=== PATIENT | female | born 1950 | race Caucasian/White ===

== ENCOUNTER 2017-11-14 06:50 | Day surgery (SDC) | payer MEDICARE ==
[2017-11-13 09:56] VITALS: BMI 25.0
[~2017-11-14 06:50] MED LIST: DEXAMETHASONE SOD PHOSPHATE 10 MG/ML 1 ML VIAL IV ONE; LACTATED RINGERS 1,000 ML IV SCH; LIDOCAINE 1% 20 ML VIAL (10MG/ML) FOR IV START INTRADERMA PRN; ONDANSETRON 4 MG/2 ML VIAL IVP ONE
[2017-11-14] MEDS: CYCLOPENTOLATE 1% OPHTH SOLN 2 ML BTL OP ONE ×3 (07:08→07:30)
[2017-11-14] MEDS: PHENYLEPHRINE 10% OPHTH DROPS 5 ML BTL OP ONE ×3 (07:12→07:33)
[2017-11-14 07:14] VITALS: RESP 16; TEMP 97.6
[2017-11-14] MEDS: FLURBIPROFEN 0.03% OPHTH DROPS 2.5 ML BTL OP ONE ×3 (07:15→07:36)
[2017-11-14 07:31] LABS: Glucose,Whole Blood 143 mg/dL (75-99)
[2017-11-14] MEDS ORDERED: PROPOFOL 10 MG/ML 20 ML VIAL IV ONE (07:55)
[2017-11-14] MEDS ORDERED: TETRACAINE 0.5% OPHTH (PF) DROPS 4 ML BTL LEFT EYE ONE (07:55)
[2017-11-14] MEDS ORDERED: BALANCED SALT IRRIG SOLN COMB2 15 ML IRRIG.SOLN IRRIGATION ONE (08:13)
[2017-11-14] MEDS ORDERED: HYALURONATE SODIUM INTRAOCULAR 1 EACH SYRINGE (10MG/ML) INTRAOCULA ONE ×2 (08:13)
[2017-11-14] MEDS ORDERED: EPINEPHrine (PF) 0.5 ML in BALANCED SALT IRRIG SOLN COMB2 500 ML IRRIGATION ONE (08:15)
--- NOTE | 2017-11-14 08:40 | P.OP ---
Date of Procedure: 11/14/17 Procedure(s) Performed: PREOPERATIVE DIAGNOSIS: Cataract, left eye. POSTOPERATIVE DIAGNOSIS: Cataract, left eye. OPERATION: Phacoemulsification cataract, left eye. DESCRIPTION OF PROCEDURE: The patient was taken to the preoperative holding area. Intravenous Propofol was given so as to bring about adequate sedation. The following mixture was given for local anesthesia: 5 mL of 2% lidocaine, 5 mL of 0.75% Marcaine, and 1 mL of Wydase. Approximately 4 mL was injected in the retrobulbar space of the surgical eye. Additional 1 mL was then directed to the temporal area of the surgical eye. This was performed to allow adequate neurological block of the facial muscles. The patient was revived and then taken into the operative room. The patient was prepped and draped in the usual sterile manner for the operative eye. A lid speculum was put into position. The conjunctiva was resected back from the limbus in the 12 o'clock position. Bleeding was controlled with electrocautery. A #69 blade was then used and a half-thickness scleral incision approximately 1-mm posterior to the limbus was made on bare sclera. This was shelved in the clear cornea using a crescent knife. The steep axis of astigmatism was marked using a pre-inked corneal marking device. Next a 15-degree blade was used to make a stab incision at the 3 o'clock position at the corneolimbal interface. Keratome blade was then used and the superior wound was extended into the anterior chamber. Viscoelastic was injected into the anterior chamber and to maintain its form. An I-stent was introduced and placed into the inferior angle using a hand held gonioprism for guidance. The device was strummed to ensure proper placement. Next, a cystotome was used and a continuous anterior capsulotomy was made without difficulty. Hydrodissection using a blunt cannula and BSS was performed. Phaco probe was then employed and a groove extending from 12 to 6 o' clock in the lens was created. A Edmond wand was used through the stab incision so as to perform a divide and conquer technique. Next an irrigation aspiration probe was utilized and any residual cortex was removed from the eye. Again, viscoelastic was injected into the anterior chamber. An Eliu Toric Restor 2.5 toric posterior chamber lens implant was placed in the cartridge and injected into the anterior chamber without difficulty. The Sinskey hook was utilized to spin the lens into position and this was again performed without any difficulty. The irrigation and aspiration probe was again employed and any residual viscoelastic was removed from the eye. Then BSS was injected into the limbal stab incision and the anterior chamber re-inflated. The conjunctiva was reapproximated using electrocautery. One drop of 0.25% Timoptic was placed over the corneal along with TobraDex ophthalmic ointment. Two sterile patches and a Thomason eye shield were taped into position. The patient was transported to the recovery room in stable condition. Pathology: none sent Condition: stable Disposition: same day
[2017-11-14 08:52] LABS: Glucose,Whole Blood 116 mg/dL (75-99)
[2017-11-14 09:14] VITALS: BP 112/56; PULSE 82
[2017-11-14] MEDS ORDERED: TIMOLOL 0.5% OPHTH DROPS 5 ML BTL OP ONE (23:00)
[2017-11-14] MEDS ORDERED: GENTAMICIN/PREDNISOL AC OPHTH OINT 3.5GM OPHTHALMIC ONE (23:00)
[2017-11-14] MEDS ORDERED: BUPIVACAINE (PF) 0.75% 5 ML, HYALURONIDASE, HUMAN RECOMB 150 UNIT, LIDOCAINE 2% (PF) 10... MISCELLANE ONE ×3 (23:00)
== END 2017-11-14 09:26 | disposition home or self-care (01) ==
LOC: OR 06:50
PROVIDERS: ATTEND Ophthalmology
DX: E11.36 Type 2 diabetes mellitus with diabetic cataract (principal); E13.39 Other specified diabetes mellitus with other diabetic ophthalmic complication; I10 Essential (primary) hypertension; H40.1120 Primary open-angle glaucoma, left eye, stage unspecified; F32.9 Major depressive disorder, single episode, unspecified; E78.5 Hyperlipidemia, unspecified; K21.9 Gastro-esophageal reflux disease without esophagitis; Z88.0 Allergy status to penicillin; Z79.4 Long term (current) use of insulin; Z98.41 Cataract extraction status, right eye; Z96.1 Presence of intraocular lens; Z79.891 Long term (current) use of opiate analgesic; Z79.899 Other long term (current) drug therapy; Z90.710 Acquired absence of both cervix and uterus
CPT/HCPCS: 0191T; 66984

== ENCOUNTER 2024-12-26 16:33 | Inpatient (IN) | payer MEDICARE, OTHER ==
--- NOTE | 2024-12-26 16:59 | ED ---
Recheck HPI - General Chief Complaint: Recheck/Abnormal Lab/Rx Stated Complaint: Abn labs Time Seen by Provider: 12/26/24 16:55 Source: patient, RN notes reviewed, old records reviewed Mode of arrival: ambulatory Limitations: no limitations - History of Present Illness Initial Comments: This is a 74-year-old female to the ER for evaluation today. She presents today for evaluation of abnormal outpatient lab testing elevated potassium. Patient is asymptomatic and has no complaints denies taking exogenous potassium Complaint: abnormal lab (Abnormal potassium) -: unknown Returns Today for: Called Because of Abnormal Lab/Test Symptoms Since Prior Visit: no new symptoms Context: called for abnormal lab result Associated Symptoms: none Treatments Prior to Arrival: other - Related Data Home Medications Medication Instructions Recorded Confirmed Citalopram Hydrobromide [CeleXA] 40 mg PO DAILY 02/19/14 12/26/24 Cyclobenzaprine [Flexeril] 10 mg PO HS 02/19/14 12/26/24 Omeprazole [PriLOSEC] 20 mg PO DAILY 02/19/14 12/26/24 Alendronate Sodium [Fosamax] 70 mg PO FR 12/26/24 12/26/24 Gabapentin 600 mg PO DAILY 12/26/24 12/26/24 Gabapentin 600 mg PO HS PRN 12/26/24 12/26/24 Ibuprofen [Motrin] 600 mg PO Q8HR PRN 12/26/24 12/26/24 Insulin Glargine,Hum.rec.anlog 20 units SQ DAILY 12/26/24 12/26/24 [Lantus Solostar Pen] Insulin Lispro [humaLOG Kwikpen] 1 - 10 unit SQ TID-W/MEALS 12/26/24 12/26/24 L.acidoph,Paracasei, B.lactis 1 cap PO DAILY 12/26/24 12/26/24 [Probiotic] Pravastatin Sodium [Pravachol] 40 mg PO DAILY 12/26/24 12/26/24 lisinopriL [Zestril] 10 mg PO DAILY 12/26/24 12/26/24 Allergies Allergy/AdvReac Type Severity Reaction Status Date / Time Penicillins Allergy Unknown Rash/Hives Verified 12/26/24 18:42 Review of Systems ROS Statement: Those systems with pertinent positive or pertinent negative responses have been documented in the HPI. ROS Other: All systems not noted in ROS Statement are negative. Past Medical History Past Medical History: Diabetes Mellitus, Fibromyalgia, GERD/Reflux, Hyperlipidemia, Osteoarthritis (OA) History of Any Multi-Drug Resistant Organisms: None Reported Past Surgical History: Appendectomy, Hysterectomy, Tonsillectomy Additional Past Surgical History / Comment(s): CATARACT RIGHT EYE (09/12/17) Past Anesthesia/Blood Transfusion Reactions: No Reported Reaction Past Psychological History: Depression Past Alcohol Use History: None Reported Past Drug Use History: None Reported - Past Family History Mother Family Medical History: Cancer General Exam Limitations: no limitations General appearance: alert, in no apparent distress Head exam: Present: atraumatic, normocephalic, normal inspection Eye exam: Present: normal appearance, PERRL, EOMI. Absent: scleral icterus, conjunctival injection, periorbital swelling ENT exam: Present: normal exam, mucous membranes moist Neck exam: Present: normal inspection. Absent: tenderness, meningismus, lymphadenopathy Respiratory exam: Present: normal lung sounds bilaterally. Absent: respiratory distress, wheezes, rales, rhonchi, stridor Cardiovascular Exam: Present: regular rate, normal rhythm, normal heart sounds. Absent: systolic murmur, diastolic murmur, rubs, gallop, clicks GI/Abdominal exam: Present: soft, normal bowel sounds. Absent: distended, tenderness, guarding, rebound, rigid Extremities exam: Present: normal inspection, full ROM, normal capillary refill. Absent: tenderness, pedal edema, joint swelling, calf tenderness Back exam: Present: normal inspection Neurological exam: Present: alert, oriented X3, CN II-XII intact Psychiatric exam: Present: normal affect, normal mood Skin exam: Present: warm, dry, intact, normal color. Absent: rash Course Vital Signs 12/26/24 12/26/24 16:48 18:30 Temperature 98.0 F Pulse Rate 91 71 Respiratory 18 16 Rate Blood Pressure 107/65 123/71 O2 Sat by Pulse 97 99 Oximetry - Reevaluation(s) Reevaluation #1: 12/26/24 19:00 Medical records reviewed Reevaluation #2: 12/26/24 19:00 Patient is asymptomatic Reevaluation #3: 12/26/24 19:00 Patient informed of results questions answered Reevaluation #4: Was pt. sent in by a medical professional or institution (MARY Carlisle, REHABILITATION SPECIALIST, urgent care, hospital, or prison...) When possible be specific @ -no Did you speak to anyone other than the patient for history (EMS, parent, family, police, friend...)? What history was obtained from this source @ -no Did you review nursing and triage notes (agree or disagree)? Why? @ -agree Are old charts reviewed (outside hosp., previous admission, EMS record, old EKG, old radiological studies, urgent care reports/EKG's, prison records)? Report findings @ -yes Differential Diagnosis (chest pain, altered mental status, abdominal pain women, abdominal pain men, vaginal bleeding, weakness, fever, dyspnea, syncope, hea dache, dizziness, GI bleed, back pain, seizure, CVA, palpatations, mental health, musculoskeletal)? @ -prior EKG interpreted by me (3pts min.). @ -yes X-rays interpreted by me (1pt min.). @ -yes negative for acute disease CT interpreted by me (1pt min.). @ -no U/S interpreted by me (1pt. min.). @ -no What testing was considered but not performed or refused? (CT, X-rays, U/S, labs)? Why? @ -none What meds were considered but not given or refused? Why? @ -none Did you discuss the management of the patient with other professionals (professionals i.e. MARY Carlisle, REHABILITATION SPECIALIST, lab, RT, psych nurse, social service liaison, instructional support assistant, teacher, maritime officer, case hardener)? Give summary @ -no Was smoking cessation discussed for >3mins.? @ -no Was critical care preformed (if so, how long)? @ -no Were there social determinants of health that impacted care today? How? (Homelessness, low income, unemployed, alcoholism, drug addiction, transportation, low edu. Level, literacy, decrease access to med. care, retirement, rehab)? @ -none Was there de-escalation of care discussed even if they declined (Discuss DNR or withdrawal of care, Hospice)? DNR status @ -no What co-morbidities impacted this encounter? (DM, HTN, Smoking, COPD, CAD, Cancer, CVA, ARF, Chemo, Hep., AIDS, mental health diagnosis, sleep apnea, mo rbid obesity)? @ -none Was patient admitted / discharged? Hospital course, mention meds given and r oute, prescriptions, significant lab abnormalities, going to OR and other pertinent info. @ - Undiagnosed new problem with uncertain prognosis? @ -no Drug Therapy requiring intensive monitoring for toxicity (Heparin, Nitro, Insulin, Cardizem)? @ -no Were any procedures done? @ -no Diagnosis/symptom? @ - Acute, or Chronic, or Acute on Chronic? @ -Acute Uncomplicated (without systemic symptoms) or Complicated (systemic symptoms)? @ -Complicated Side effects of treatment? @ -no Exacerbation, Progression, or Severe Exacerbation? @ -exacerbation Poses a threat to life or bodily function? How? (Chest pain, USA, DE, pneumonia, PE, COPD, DKA, ARF, appy, cholecystitis, CVA, Diverticulitis, Homicidal, Suicidal, threat to staff... and all critical care pts) @ -yes - Consultations Consultation #1: Spoke with sound who agrees to admit this patient Medical Decision Making - Medical Decision Making 74 female will admit for hyperkalemia no EKG changes - Lab Data Result diagrams: 12/26/24 17:10 12/26/24 17:10 Lab Results 12/26/24 12/26/24 Range/Units 17:10 17:10 WBC 7.5 (3.8-10.6) k/uL RBC 3.82 (3.80-5.40) m/uL Hgb 11.6 (11.4-16.0) gm/dL Hct 35.6 (34.0-46.0) % MCV 93.2 (80.0-100.0) fL MCH 30.3 (25.0-35.0) pg MCHC 32.5 (31.0-37.0) g/dL RDW 12.9 (11.5-15.5) % Plt Count 249 (150-450) k/uL MPV 7.2 Neutrophils % 68 % Lymphocytes % 16 % Monocytes % 7 % Eosinophils % 6 % Basophils % 0 % Neutrophils # 5.1 (1.3-7.7) k/uL Lymphocytes # 1.2 (1.0-4.8) k/uL Monocytes # 0.5 (0-1.0) k/uL Eosinophils # 0.4 (0-0.7) k/uL Basophils # 0.0 (0-0.2) k/uL Sodium 136 L (137-145) mmol/L Potassium 6.2 H* (3.5-5.1) mmol/L Chloride 108 H (98-107) mmol/L Carbon Dioxide 18 L (22-30) mmol/L Anion Gap 10 mmol/L BUN 35 H (7-17) mg/dL Creatinine 1.36 H (0.52-1.04) mg/dL Est GFR (CKD-EPI)AfAm 44 (>60 ml/min/1.73 sqM) Est GFR (CKD-EPI)NonAf 38 (>60 ml/min/1.73 sqM) Glucose 142 H (74-99) mg/dL Calcium 9.6 (8.4-10.2) mg/dL Phosphorus 6.7 H (2.5-4.5) mg/dL Magnesium 1.9 (1.6-2.3) mg/dL Total Bilirubin 0.4 (0.2-1.3) mg/dL AST 27 (14-36) U/L ALT 16 (4-34) U/L Alkaline Phosphatase 123 (38-126) U/L Total Protein 6.6 (6.3-8.2) g/dL Albumin 4.0 (3.5-5.0) g/dL - EKG Data -: EKG Interpreted by Me (EKG is sinus 82 HI 145 QRS 85 QTc 396) Critical Care Time Critical Care Time: Yes Total Critical Care Time: 31 Disposition Clinical Impression: Hyperkalemia Disposition: ADMITTED IP TO THIS HOSP Condition: Fair Is patient prescribed a controlled substance at d/c from ED?: No Time of Disposition: 18:00
[2024-12-26] MEDS: SODIUM CHLORIDE 0.9% 1,000 ML IV ONE (17:14)
[2024-12-26 17:17] LABS: Basophils % (A) 0 %; Eosinophils # (A) 0.4 k/uL (0-0.7); Eosinophils % (A) 6 %; HCT 35.6 % (34.0-46.0); HGB 11.6 gm/dL (11.4-16.0); Lymphocytes # (A) 1.2 k/uL (1.0-4.8); Lymphocytes % (A) 16 %; MCH 30.3 pg (25.0-35.0); MCHC 32.5 g/dL (31.0-37.0); MCV 93.2 fL (80.0-100.0); Mean Platelet Volume 7.2; Monocytes # (A) 0.5 k/uL (0-1.0); Monocytes % (A) 7 %; Neutrophils # (A) 5.1 k/uL (1.3-7.7); Neutrophils % (A) 68 %; Platelet Count 249 k/uL (150-450); RBC 3.82 m/uL (3.80-5.40); RDW 12.9 % (11.5-15.5); WBC 7.5 k/uL (3.8-10.6)
[2024-12-26 17:42] LABS: ALT 16 U/L (4-34); AST 27 U/L (14-36); African American GFR (CKD) 44 (>60 ml/min/1.73 sqM); Alkaline Phosphatase 123 U/L (38-126); Anion Gap 10 mmol/L; Blood Urea Nitrogen 35 mg/dL (7-17); Calcium 9.6 mg/dL (8.4-10.2); Carbon Dioxide 18 mmol/L (22-30); Chloride 108 mmol/L (98-107); Glucose 142 mg/dL (74-99); Magnesium 1.9 mg/dL (1.6-2.3); Non-African American GFR(CKD) 38 (>60 ml/min/1.73 sqM); Phosphorus 6.7 mg/dL (2.5-4.5); Sodium 136 mmol/L (137-145); Total Bilirubin 0.4 mg/dL (0.2-1.3); Total Protein 6.6 g/dL (6.3-8.2)
[2024-12-26 17:46] LABS: Potassium 6.2 mmol/L (3.5-5.1)
[2024-12-26] MEDS ORDERED: MORPHINE SULFATE 4 MG/ML SYRINGE IV PRN (17:58)
[2024-12-26] MEDS ORDERED: NALOXONE 0.4 MG/ML 1 ML VIAL IV PRN (17:58)
[2024-12-26] MEDS ORDERED: ONDANSETRON 4 MG/2 ML VIAL IVP PRN (17:58)
[2024-12-26] MEDS: DEXTROSE 50% SYRINGE 50 ML IVP STA (18:43)
[2024-12-26] MEDS: INSULIN REGULAR 100 UNIT/ML VIAL (IV) IV ONE (18:47)
[2024-12-26] MEDS: SODIUM ZIRCONIUM CYCLOSILICATE 10 GM PACKET PO ONE (18:49)
[2024-12-26] MEDS: FUROSEMIDE 10 MG/ML 4 ML VIAL IV STA (18:51)
[2024-12-26 20:09] LABS: Glucose,Whole Blood 55 mg/dL (70-110)
[2024-12-26 20:52] LABS: Glucose,Whole Blood 188 mg/dL (70-110)
[2024-12-26] MEDS: SODIUM CHLORIDE 0.9% 1,000 ML IV SCH (21:02)
[2024-12-26] MEDS ORDERED: GABAPENTIN 300 MG CAP PO PRN (21:06)
[2024-12-27 00:09] LABS: Glucose,Whole Blood 201 mg/dL (70-110)
--- NOTE | 2024-12-27 01:23 | P.HPIM ---
History of Present Illness H&P Date: 12/26/24 Chief Complaint: Hyperkalemia Patient is a 74 female with insulin-dependent diabetes mellitus, hyperlipidemia presenting with abnormal lab value of potassium level of 6.2. Patient states she had lab work recently done by her PCP. Received a call by her PCP to go to the emergency department due to high level of potassium of 7. Patient currently denies any fever, chest pain, heart palpitations, shortness of breath, abdominal pain, urinary symptoms. Denies any excessive exogenous potassium intake. EKG independent interpreted showing sinus rhythm, vent rate 82 bpm, QTc 396 ms T98.0 F, NV 91, RR 18 BP 107/65, O2 sat 97% on room air Review of systems: Pertinent positives and negatives as discussed in HPI, a complete review of systems was performed and all other systems are negative. Physical examination: Vital signs reviewed General: non toxic, no distress, appears at stated age, normal weight Derm: no unusual rashes/lesions, warm Head: atraumatic, normocephalic, symmetric Eyes: anicteric sclera, pupils equal round reactive to light ENT: Nose and ears atraumatic Mouth: no lip lesion, mucus membranes moist Cardiovascular: S1S2 reg, no murmur, positive dorsalis pedis pulse bilateral, no edema Lungs: CTA bilateral, no rhonchi, no rales, no accessory muscle use Abdominal: soft, nontender to palpation, no guarding Ext: muscle strength 5 out of 5 in all 4 extremities grossly, no gross muscle atrophy Neuro: CN II-XI grossly intact, no gross focal neuro deficits Psych: Alert, oriented to person, place, and time Assessment/Plan: ED documentation reviewed and case discussed with ED provider. Discussed with patient. The patient is admitted with an anticipated less than 2 midnight stay for evaluation of hyperkalemia. #. Hyperkalemia #. Non-anion gap metabolic acidosis #. DIANE on CKD stage IIIa (unknown baseline) #. Elevated phosphorus K 6.2 Phosphorus 6.7 Status post regular insulin 10 units IV once, dextrose 50 mL IVPB, Lasix 40 mg IV once, and Lokelma 10 g PO Hold lisinopril Renal diet NS at 130 cc an hour Cardiac telemetry Follow-up BMP in the morning #. Insulin-dependent diabetes mellitus Continue with Lantus 20 units SQ daily Humalog 5 unit SQ AC 3 times daily Insulin SQ sliding scale Accu-Cheks ACHS Monitor for hypoglycemia Chronic: #. Hyperlipidemia: Continue atorvastatin #. Depression: Continue citalopram 40 mg p.o. daily #. Neuropathy: Continue gabapentin 600 Millin p.o. daily, 600 mg p.o. at bedtime as needed #. GERD: Protonix 40 mg p.o. daily DVT prophylaxis: Lovenox 40 SQ daily CODE STATUS: Full code Anticipated discharge place: Pending clinical course Jessica Willis MD PGY-1 IM Dictation was produced using [employer] dictation software. please excuse any grammatical, word or spelling errors. I have seen and evaluated the patient today. I Discussed the case with the resident and agree with the resident's findings I edited the assessment and plan as necessary as documented in the resident's note. Past Medical History Past Medical History: Diabetes Mellitus, Fibromyalgia, GERD/Reflux, Hyperlipidemia, Osteoarthritis (OA) History of Any Multi-Drug Resistant Organisms: None Reported Past Surgical History: Appendectomy, Hysterectomy, Tonsillectomy Additional Past Surgical History / Comment(s): CATARACT RIGHT EYE (09/12/17) Past Anesthesia/Blood Transfusion Reactions: No Reported Reaction Past Psychological History: Depression Past Alcohol Use History: None Reported Past Drug Use History: None Reported - Past Family History Mother Family Medical History: Cancer Medications and Allergies Home Medications Medication Instructions Recorded Confirmed Type Citalopram Hydrobromide [CeleXA] 40 mg PO DAILY 02/19/14 12/26/24 History Cyclobenzaprine [Flexeril] 10 mg PO HS 02/19/14 12/26/24 History Omeprazole [PriLOSEC] 20 mg PO DAILY 02/19/14 12/26/24 History Alendronate Sodium [Fosamax] 70 mg PO FR 12/26/24 12/26/24 History Gabapentin 600 mg PO DAILY 12/26/24 12/26/24 History Gabapentin 600 mg PO HS PRN 12/26/24 12/26/24 History Ibuprofen [Motrin] 600 mg PO Q8HR PRN 12/26/24 12/26/24 History Insulin Glargine,Hum.rec.anlog 20 units SQ DAILY 12/26/24 12/26/24 History [Lantus Solostar Pen] Insulin Lispro [humaLOG Kwikpen] 1 - 10 unit SQ TID-W/MEALS 12/26/24 12/26/24 History L.acidoph,Paracasei, B.lactis 1 cap PO DAILY 12/26/24 12/26/24 History [Probiotic] Pravastatin Sodium [Pravachol] 40 mg PO DAILY 12/26/24 12/26/24 History lisinopriL [Zestril] 10 mg PO DAILY 12/26/24 12/26/24 History Allergies Allergy/AdvReac Type Severity Reaction Status Date / Time Penicillins Allergy Unknown Rash/Hives Verified 12/26/24 18:42 Physical Exam Vitals: Vital Signs Temp Pulse Resp BP Pulse Ox 12/26/24 18:30 71 16 123/71 99 12/26/24 16:48 98.0 F 91 18 107/65 97 Intake and Output 12/26/24 12/26/24 12/26/24 06:59 14:59 22:59 Other: Weight 68.039 kg Results CBC & Chem 7: 12/26/24 17:10 12/26/24 17:10 Labs: Abnormal Lab Results - Last 24 Hours (Table) 12/26/24 Range/Units 17:10 Sodium 136 L (137-145) mmol/L Potassium 6.2 H* (3.5-5.1) mmol/L Chloride 108 H (98-107) mmol/L Carbon Dioxide 18 L (22-30) mmol/L BUN 35 H (7-17) mg/dL Creatinine 1.36 H (0.52-1.04) mg/dL Glucose 142 H (74-99) mg/dL Phosphorus 6.7 H (2.5-4.5) mg/dL
[2024-12-27 03:13] LABS: Basophils % (A) 1 %; Eosinophils # (A) 0.3 k/uL (0-0.7); Eosinophils % (A) 5 %; HCT 33.5 % (34.0-46.0); HGB 10.8 gm/dL (11.4-16.0); Hypochromasia Slight; Lymphocytes % (A) 17 %; MCH 30.4 pg (25.0-35.0); MCHC 32.1 g/dL (31.0-37.0); MCV 94.5 fL (80.0-100.0); Mean Platelet Volume 7.1; Monocytes # (A) 0.4 k/uL (0-1.0); Monocytes % (A) 7 %; Neutrophils # (A) 3.8 k/uL (1.3-7.7); Neutrophils % (A) 67 %; Platelet Count 224 k/uL (150-450); RBC 3.55 m/uL (3.80-5.40); RDW 12.8 % (11.5-15.5); WBC 5.7 k/uL (3.8-10.6)
[2024-12-27 03:22] LABS: ALT 16 U/L (4-34); AST 29 U/L (14-36); African American GFR (CKD) 43 (>60 ml/min/1.73 sqM); Albumin 3.7 g/dL (3.5-5.0); Alkaline Phosphatase 99 U/L (38-126); Anion Gap 8 mmol/L; Blood Urea Nitrogen 33 mg/dL (7-17); Carbon Dioxide 21 mmol/L (22-30); Chloride 108 mmol/L (98-107); Glucose 119 mg/dL (74-99); Magnesium 1.8 mg/dL (1.6-2.3); Non-African American GFR(CKD) 37 (>60 ml/min/1.73 sqM); Phosphorus 6.4 mg/dL (2.5-4.5); Sodium 137 mmol/L (137-145); Total Bilirubin 0.3 mg/dL (0.2-1.3); Total Protein 6.1 g/dL (6.3-8.2)
[2024-12-27 03:24] LABS: African American GFR (CKD) 43 (>60 ml/min/1.73 sqM); Anion Gap 10 mmol/L; Blood Urea Nitrogen 33 mg/dL (7-17); Calcium 9.3 mg/dL (8.4-10.2); Carbon Dioxide 21 mmol/L (22-30); Chloride 105 mmol/L (98-107); Creatine Kinase 38 U/L (30-135); Glucose 113 mg/dL (74-99); Non-African American GFR(CKD) 37 (>60 ml/min/1.73 sqM); Sodium 136 mmol/L (137-145)
[2024-12-27 03:30] LABS: Potassium 6.1 mmol/L (3.5-5.1)
--- NOTE | 2024-12-27 10:59 | US ---
EXAMINATION TYPE: US kidneys/renal and bladder DATE OF EXAM: 12/27/2024 COMPARISON: NONE CLINICAL INDICATION: Female, 74 years old with history of DIANE on CKD; DIANE/CKD TECHNIQUE: Grayscale imaging of the bilateral kidneys and urinary bladder: FINDINGS: EXAM MEASUREMENTS: Right Kidney: 10.1x5.1x4.5 cm Left Kidney: 8.4x4.2x4.1 cm Right Kidney: No hydronephrosis or masses seen Left Kidney: atrophic appearance compared to right side, cortical thinning Bladder: wnl There is no evidence for hydronephrosis at this point in time. No nephrolithiasis is seen. No naila s are identified. The urinary bladder is anechoic. exam limited by shadowing ribs, bowel gas, body habitus IMPRESSION: 1. No obstructive uropathy. 2. Atrophic left kidney with cortical thinning correlate for history of injury. [facility], , 12/27/2024 10:56 AM
[2024-12-27 11:05] LABS: Glucose,Whole Blood 204 mg/dL (70-110)
[2024-12-27] MEDS: INSULIN LISPRO (HumaLOG) 100 UNIT/ML 10 mL VL SQ SCH ×2 (11:23)
[2024-12-27 11:24] LABS: Appearance,Urine Clear (Clear); Bilirubin,Urine Negative (Negative); Blood,Urine Negative (Negative); Color,Urine Colorless; Glucose,Urine (UA) 4+ (Negative); Ketones,Urine Negative (Negative); Leukocyte Esterase,Urine Trace (Negative); Nitrite,Urine Negative (Negative); PH, Urine 6.5 (5.0-8.0); Protein,Urine Negative (Negative); RBC,Urine <1 /hpf (0-5); Specific Gravity,Urine 1.011 (1.001-1.035); Squamous Epithelial Cell,Urine <1 /hpf (0-4); Urobilinogen,Urine <2.0 mg/dL (<2.0); WBC,Urine 3 /hpf (0-5)
[2024-12-27] MEDS: INSULIN GLARGINE (LANTUS) 100 UNIT/ML SYR SQ SCH (11:25)
[2024-12-27] MEDS: CITALOPRAM HYDROBROMIDE 20 MG TAB PO SCH (11:27)
[2024-12-27] MEDS: PANTOPRAZOLE 40 MG TABLET PO SCH (11:28)
[2024-12-27] MEDS: PRAVASTATIN SODIUM 40 MG TAB PO SCH (11:28)
[2024-12-27] MEDS: SODIUM ZIRCONIUM CYCLOSILICATE 10 GM PACKET PO ONE (11:29)
[2024-12-27] MEDS: ENOXAPARIN 40 MG/0.4 ML SYRINGE SQ SCH (11:30)
[2024-12-27] MEDS: GABAPENTIN 300 MG CAP PO SCH (11:36)
--- NOTE | 2024-12-27 12:34 | P.PN ---
Subjective Progress Note Date: 12/27/24 Patient is a 74 female with insulin-dependent diabetes mellitus, hyperlipidemia presenting with abnormal lab value of potassium level of 6.2. Patient states she had lab work recently done by her PCP. Received a call by her PCP to go to the emergency department due to high level of potassium of 7. Patient currently denies any fever, chest pain, heart palpitations, shortness of breath, abdominal pain, urinary symptoms. Denies any excessive exogenous potassium intake. EKG independent interpreted showing sinus rhythm, vent rate 82 bpm, QTc 396 ms T98.0 F, CO 91, RR 18 BP 107/65, O2 sat 97% on room air 12/27/2024 patient seen and examined at bedside. No acute events overnight. Labs: WBC 5.7, hemoglobin 10.8, platelet count 2 24,000, sodium 136, potassium 6, bicarb 21, BUN 33, creatinine 4.38, glucose 113, calcium 9.3, phosphorus 6.4, magnesium 1.8. Creatinine kinase 38. Liver enzymes normal. Review of systems: Pertinent positives and negatives as discussed in HPI, a complete review of sy stems was performed and all other systems are negative. Physical examination: Vital signs reviewed General: non toxic, no distress, appears at stated age, normal weight Derm: no unusual rashes/lesions, warm Head: atraumatic, normocephalic, symmetric Eyes: anicteric sclera, pupils equal round reactive to light ENT: Nose and ears atraumatic Mouth: no lip lesion, mucus membranes moist Cardiovascular: S1S2 reg, no murmur, positive dorsalis pedis pulse bilateral, no edema Lungs: CTA bilateral, no rhonchi, no rales, no accessory muscle use Abdominal: soft, nontender to palpation, no guarding Ext: muscle strength 5 out of 5 in all 4 extremities grossly, no gross muscle atrophy Neuro: CN II-XI grossly intact, no gross focal neuro deficits Psych: Alert, oriented to person, place, and time Assessment/Plan: 74-year-old female with diabetes, hyperlipidemia presenting for further management of hyperkalemia. ED documentation reviewed and case discussed with ED provider. Discussed with patient. The patient is admitted with an anticipated less than 2 midnight stay for evaluation of hyperkalemia. #. Hyperkalemia #. Non-anion gap metabolic acidosis #. DIANE on CKD stage IIIa (unknown baseline) #. Elevated phosphorus K 6 Given regular insulin 10 units IV x1, dextrose 50 mL IVPB x1, Lasix 40 mg IV x1, and Lokelma 10 g PO x1 in the ED Hold lisinopril Lokelma 10 g once p.o. Recheck potassium in the afternoon Renal diet NS at 100 cc an hour Cardiac telemetry Follow-up BMP in the morning #. Insulin-dependent diabetes mellitus Continue with Lantus 20 units SQ daily Humalog 5 unit SQ AC 3 times daily Insulin SQ sliding scale Accu-Cheks ACHS Monitor for hypoglycemia Chronic: #. Hyperlipidemia: Continue atorvastatin #. Depression: Continue citalopram 40 mg p.o. daily #. Neuropathy: Continue gabapentin 600 Millin p.o. daily, 600 mg p.o. at bedtime as needed #. GERD: Protonix 40 mg p.o. daily DVT prophylaxis: Lovenox 40 SQ daily CODE STATUS: Full code Anticipated discharge place: Pending clinical course I have seen and evaluated the patient today. Discussed with the resident and agree with the residents finding and plan as documented in the resident's note. Changes highlighted in blue font. Objective - Vital Signs Vital signs: Vital Signs Temp 98.0 F 12/26/24 16:48 Pulse 82 12/27/24 04:47 Resp 16 12/27/24 04:47 BP 126/62 12/27/24 04:47 Pulse Ox 99 12/27/24 04:47 FiO2 Intake & Output 12/26/24 12/26/24 12/27/24 06:59 18:59 06:59 Weight 68.039 kg - Labs CBC & Chem 7: 12/27/24 02:37 12/27/24 12:03 Labs: Abnormal Lab Results - Last 24 Hours (Table) 12/26/24 12/26/24 12/26/24 Range/Units 17:10 20:08 20:51 RBC (3.80-5.40) m/uL Hgb (11.4-16.0) gm/dL Hct (34.0-46.0) % Sodium 136 L (137-145) mmol/L Potassium 6.2 H* (3.5-5.1) mmol/L Chloride 108 H (98-107) mmol/L Carbon Dioxide 18 L (22-30) mmol/L BUN 35 H (7-17) mg/dL Creatinine 1.36 H (0.52-1.04) mg/dL Glucose 142 H (74-99) mg/dL POC Glucose (mg/dL) 55 L 188 H (70-110) mg/dL Phosphorus 6.7 H (2.5-4.5) mg/dL Total Protein (6.3-8.2) g/dL 12/27/24 12/27/24 12/27/24 Range/Units 00:06 02:37 02:37 RBC 3.55 L (3.80-5.40) m/uL Hgb 10.8 L (11.4-16.0) gm/dL Hct 33.5 L (34.0-46.0) % Sodium (137-145) mmol/L Potassium 6.1 H* (3.5-5.1) mmol/L Chloride 108 H (98-107) mmol/L Carbon Dioxide 21 L (22-30) mmol/L BUN 33 H (7-17) mg/dL Creatinine 1.38 H (0.52-1.04) mg/dL Glucose 119 H (74-99) mg/dL POC Glucose (mg/dL) 201 H (70-110) mg/dL Phosphorus 6.4 H (2.5-4.5) mg/dL Total Protein 6.1 L (6.3-8.2) g/dL 12/27/24 Range/Units 02:37 RBC (3.80-5.40) m/uL Hgb (11.4-16.0) gm/dL Hct (34.0-46.0) % Sodium 136 L (137-145) mmol/L Potassium 6.0 H (3.5-5.1) mmol/L Chloride (98-107) mmol/L Carbon Dioxide 21 L (22-30) mmol/L BUN 33 H (7-17) mg/dL Creatinine 1.38 H (0.52-1.04) mg/dL Glucose 113 H (74-99) mg/dL POC Glucose (mg/dL) (70-110) mg/dL Phosphorus (2.5-4.5) mg/dL Total Protein (6.3-8.2) g/dL
[2024-12-27 17:34] LABS: Glucose,Whole Blood 69 mg/dL (70-110)
[2024-12-27 21:04] LABS: Glucose,Whole Blood 151 mg/dL (70-110)
[2024-12-27] MEDS ORDERED: NON FORMULARY DRUG (Alendronate Sodium [Fosamax] 70 MG Tablet) PO SCH (21:06)
[2024-12-27] MEDS: CYCLOBENZAPRINE 10 MG TAB PO SCH (21:11)
[2024-12-27] MEDS ORDERED: ACETAMINOPHEN TAB 325 MG TAB PO PRN (23:38)
[2024-12-27] MEDS ORDERED: BENZOCAINE/MENTHOL LOZENG 1 EACH LOZENGE MUCOUS MEM PRN (23:38)
[2024-12-27] MEDS ORDERED: guaiFENesin 600 MG TABLET.ER PO PRN (23:40)
[2024-12-28 01:50] LABS: Influenza A Not Detected (Not Detectd); Influenza B Not Detected (Not Detectd); RSV Not Detected (Not Detectd)
[2024-12-28 06:41] LABS: African American GFR (CKD) 47 (>60 ml/min/1.73 sqM); Anion Gap 7 mmol/L; Blood Urea Nitrogen 27 mg/dL (7-17); Carbon Dioxide 24 mmol/L (22-30); Chloride 108 mmol/L (98-107); Glucose 92 mg/dL (74-99); Non-African American GFR(CKD) 40 (>60 ml/min/1.73 sqM); Potassium 5.5 mmol/L (3.5-5.1); Sodium 139 mmol/L (137-145)
[2024-12-28 07:42] LABS: Glucose,Whole Blood 96 mg/dL (70-110)
[2024-12-28] MEDS: DEXTROSE 50% SYRINGE 50 ML IVP STA (09:15)
[2024-12-28] MEDS: INSULIN REGULAR 100 UNIT/ML VIAL (IV) IV ONE (09:16)
[2024-12-28] MEDS: MAGNESIUM SULFATE-D5W PMX 1 GM in DEXTROSE/WATER 1 100ML.BAG IVPB SCH (09:26)
[2024-12-28] MEDS: SODIUM ZIRCONIUM CYCLOSILICATE 10 GM PACKET PO ONE (10:13)
--- NOTE | 2024-12-28 11:04 | P.NPCON ---
History of Present Illness - Reason for Consult hyperkalemia - History of Present Illness Patient is a 74-year-old female with history of type 2 diabetes, fibromyalgia who is admitted to the hospital as she was told by her primary care physician that her potassium was elevated and she needs to go to the ER. Serum potassium was 6.2 and has improved to 5.5 today. Serum creatinine was 1.36 and is 1.29 today. Lisinopril and Motrin noted on home med list Blood sugar was not significantly elevated Blood pressure was not low Patient states that she has had difficulty in voiding for many years now Past Medical History Past Medical History: Diabetes Mellitus, Fibromyalgia, GERD/Reflux, Hyperlipidemia, Osteoarthritis (OA) History of Any Multi-Drug Resistant Organisms: None Reported Past Surgical History: Appendectomy, Hysterectomy, Tonsillectomy Additional Past Surgical History / Comment(s): CATARACT RIGHT EYE (09/12/17) 3 back surgeries Past Anesthesia/Blood Transfusion Reactions: No Reported Reaction Past Psychological History: Depression Smoking Status: Never smoker Past Alcohol Use History: None Reported Past Drug Use History: None Reported - Past Family History Mother Family Medical History: Cancer Medications and Allergies Home Medications Medication Instructions Recorded Confirmed Type Citalopram Hydrobromide [CeleXA] 40 mg PO DAILY 02/19/14 12/26/24 History Cyclobenzaprine [Flexeril] 10 mg PO HS 02/19/14 12/26/24 History Omeprazole [PriLOSEC] 20 mg PO DAILY 02/19/14 12/26/24 History Alendronate Sodium [Fosamax] 70 mg PO FR 12/26/24 12/26/24 History Gabapentin 600 mg PO DAILY 12/26/24 12/26/24 History Gabapentin 600 mg PO HS PRN 12/26/24 12/26/24 History Ibuprofen [Motrin] 600 mg PO Q8HR PRN 12/26/24 12/26/24 History Insulin Glargine,Hum.rec.anlog 20 units SQ DAILY 12/26/24 12/26/24 History [Lantus Solostar Pen] Insulin Lispro [humaLOG Kwikpen] 1 - 10 unit SQ TID-W/MEALS 12/26/24 12/26/24 History L.acidoph,Paracasei, B.lactis 1 cap PO DAILY 12/26/24 12/26/24 History [Probiotic] Pravastatin Sodium [Pravachol] 40 mg PO DAILY 12/26/24 12/26/24 History lisinopriL [Zestril] 10 mg PO DAILY 12/26/24 12/26/24 History Allergies Allergy/AdvReac Type Severity Reaction Status Date / Time Penicillins Allergy Unknown Rash/Hives Verified 12/26/24 18:42 Physical Exam Vitals: Vital Signs Temp Pulse Pulse Resp BP BP Pulse Ox 12/28/24 07:42 97.9 F 86 14 121/76 95 12/28/24 04:00 98 F 80 16 119/74 99 12/27/24 23:35 97.7 F 89 16 152/78 96 12/27/24 22:28 84 18 130/65 97 12/27/24 19:36 98 18 126/67 98 12/27/24 15:39 94 18 141/73 96 12/27/24 13:29 91 18 122/61 96 12/27/24 11:00 95 18 Intake and Output 12/27/24 12/28/24 12/28/24 22:59 06:59 14:59 Other: Voiding Method Toilet # Voids 2 Weight 68.039 kg 69.5 kg Patient is awake, comfortable, no acute distress Examination of the heart S1 and S2 Examination of the lungs bilateral breath sounds are heard Abdomen is soft nontender Examination of lower extremities shows no evidence 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 Hyperkalemia associated with use of RUMA inhibitors, NSAIDs noted on home med list with possible acute kidney injury. No previous labs available for comparison. Need to rule out urine retention as well. 2. Acute kidney injury versus chronic kidney disease. No previous labs available for comparison. Ultrasound shows asymmetric kidneys with left kidney 8.4 cm right kidney 10.1 cm. No obvious hydronephrosis noted. 3. History of hypertension maintained on RUMA inhibitors Plan: Continue to hold RUMA inhibitors Check bladder scan Continue with IV fluids Maintain low potassium diet Patient is advised to avoid NSAIDs Treat constipation as it can exacerbate hyperkalemia Thank you for the consultation. We will continue to follow the patient with you during her hospitalization.
--- NOTE | 2024-12-28 12:29 | P.PN ---
Subjective Progress Note Date: 12/28/24 Patient is a 74 female with insulin-dependent diabetes mellitus, hyperlipidemia presenting with abnormal lab value of potassium level of 6.2. Patient states she had lab work recently done by her PCP. Received a call by her PCP to go to the emergency department due to high level of potassium of 7. Patient currently denies any fever, chest pain, heart palpitations, shortness of breath, abdominal pain, urinary symptoms. Denies any excessive exogenous potassium intake. EKG independent interpreted showing sinus rhythm, vent rate 82 bpm, QTc 396 ms T98.0 F, MD 91, RR 18 BP 107/65, O2 sat 97% on room air 12/27/2024 patient seen and examined at bedside. No acute events overnight. Labs: WBC 5.7, hemoglobin 10.8, platelet count 2 24,000, sodium 136, potassium 6, bicarb 21, BUN 33, creatinine 4.38, glucose 113, calcium 9.3, phosphorus 6.4, magnesium 1.8. Creatinine kinase 38. Liver enzymes normal. 12/28/2024 patient seen and examined at bedside. No acute events overnight. No new complaints Labs: Sodium 139, potassium 5.5, chloride 108, BUN 27, creatinine 1.29, glucose 92, calcium 9, Cepheid 4 Plex negative Review of systems: Pertinent positives and negatives as discussed in HPI, a complete review of systems was performed and all other systems are negative. Physical examination: Vital signs reviewed General: non toxic, no distress, appears at stated age, normal weight Derm: no unusual rashes/lesions, warm Head: atraumatic, normocephalic, symmetric Eyes: anicteric sclera, pupils equal round reactive to light ENT: Nose and ears atraumatic Mouth: no lip lesion, mucus membranes moist Cardiovascular: S1S2 reg, no murmur, positive dorsalis pedis pulse bilateral, no edema Lungs: CTA bilateral, no rhonchi, no rales, no accessory muscle use Abdominal: soft, nontender to palpation, no guarding Ext: muscle strength 5 out of 5 in all 4 extremities grossly, no gross muscle atrophy Neuro: CN II-XI grossly intact, no gross focal neuro deficits Psych: Alert, oriented to person, place, and time Assessment/Plan: 74-year-old female with diabetes, hyperlipidemia presenting for further management of hyperkalemia. Discussed with patient. The patient is admitted with an anticipated greater than 2 midnight stay for evaluation of hyperkalemia. #. Hyperkalemia #. Non-anion gap metabolic acidosis #. DIANE on CKD stage IIIa (unknown baseline) Potassium now 5.5 Given regular insulin 10 units IV and Lokelma 5 g PO Repleted mag 3 g IVPB. Recheck potassium and magnesium in the afternoon Renal diet Hold lisinopril and NSAIDs NS at 100 cc an hour Cardiac telemetry Follow-up BMP Nephrology consulted. Initiated lactulose for constipation #. Insulin-dependent diabetes mellitus Continue with Lantus 20 units SQ daily Humalog 5 unit SQ AC 3 times daily Insulin SQ sliding scale Accu-Cheks ACHS Monitor for hypoglycemia Chronic: #. Hyperlipidemia: Continue atorvastatin #. Depression: Continue citalopram 40 mg p.o. daily #. Neuropathy: Continue gabapentin 600 mg p.o. daily, 600 mg p.o. at bedtime as needed #. GERD: Protonix 40 mg p.o. daily DVT prophylaxis: Lovenox 40 SQ daily CODE STATUS: Full code Anticipated discharge place: Pending clinical course I saw and evaluated the patient during the salguero and critical portions of this encounter, and discussed the case in detail with the resident author of this note, I agree with the Assessment and Plan, and my changes, if any, are highlighted in blue. Objective - Vital Signs Vital signs: Vital Signs Temp 98 F 12/28/24 04:00 Pulse 80 12/28/24 04:00 Resp 16 12/28/24 04:00 BP 119/74 12/28/24 04:00 Pulse Ox 99 12/28/24 04:00 FiO2 Intake & Output 12/27/24 12/28/24 12/28/24 18:59 06:59 18:59 Weight 69.5 kg Other: Voiding Method Toilet # Voids 2 - Labs CBC & Chem 7: 12/27/24 02:37 12/28/24 05:55 Labs: Abnormal Lab Results - Last 24 Hours (Table) 12/27/24 12/27/24 12/27/24 Range/Units 11:03 11:05 12:03 Potassium 5.2 H (3.5-5.1) mmol/L Chloride (98-107) mmol/L BUN (7-17) mg/dL Creatinine (0.52-1.04) mg/dL POC Glucose (mg/dL) 204 H (70-110) mg/dL Urine Glucose (UA) 4+ H (Negative) Ur Leukocyte Esterase Trace H (Negative) 12/27/24 12/27/24 12/28/24 Range/Units 17:32 21:03 05:55 Potassium 5.5 H (3.5-5.1) mmol/L Chloride 108 H (98-107) mmol/L BUN 27 H (7-17) mg/dL Creatinine 1.29 H (0.52-1.04) mg/dL POC Glucose (mg/dL) 69 L 151 H (70-110) mg/dL Urine Glucose (UA) (Negative) Ur Leukocyte Esterase (Negative)
[2024-12-28] MEDS: LACTULOSE 20 GM/30 ML CUP PO SCH (12:31)
[2024-12-28 12:46] LABS: Glucose,Whole Blood 122 mg/dL (70-110)
[2024-12-28 15:25] LABS: African American GFR (CKD) 48 (>60 ml/min/1.73 sqM); Anion Gap 6 mmol/L; Blood Urea Nitrogen 24 mg/dL (7-17); Carbon Dioxide 23 mmol/L (22-30); Chloride 107 mmol/L (98-107); Glucose 148 mg/dL (74-99); Magnesium 3.1 mg/dL (1.6-2.3); Non-African American GFR(CKD) 41 (>60 ml/min/1.73 sqM); Potassium 5.7 mmol/L (3.5-5.1); Sodium 136 mmol/L (137-145)
[2024-12-28] MEDS: SODIUM ZIRCONIUM CYCLOSILICATE 10 GM PACKET PO SCH (17:05)
[2024-12-28 17:47] LABS: Glucose,Whole Blood 146 mg/dL (70-110)
[2024-12-28 19:59] LABS: Glucose,Whole Blood 115 mg/dL (70-110)
[2024-12-29 04:37] LABS: Basophils % (A) 1 %; Eosinophils # (A) 0.3 k/uL (0-0.7); Eosinophils % (A) 5 %; HCT 31.1 % (34.0-46.0); HGB 10.3 gm/dL (11.4-16.0); Lymphocytes % (A) 17 %; MCH 30.7 pg (25.0-35.0); MCHC 33.1 g/dL (31.0-37.0); Mean Platelet Volume 7.4; Monocytes # (A) 0.4 k/uL (0-1.0); Monocytes % (A) 6 %; Neutrophils # (A) 4.1 k/uL (1.3-7.7); Neutrophils % (A) 69 %; Platelet Count 231 k/uL (150-450); RBC 3.34 m/uL (3.80-5.40); RDW 12.6 % (11.5-15.5); WBC 5.9 k/uL (3.8-10.6)
[2024-12-29 04:49] LABS: African American GFR (CKD) 53 (>60 ml/min/1.73 sqM); Anion Gap 6 mmol/L; Blood Urea Nitrogen 17 mg/dL (7-17); Calcium 8.4 mg/dL (8.4-10.2); Carbon Dioxide 22 mmol/L (22-30); Chloride 110 mmol/L (98-107); Glucose 96 mg/dL (74-99); Non-African American GFR(CKD) 46 (>60 ml/min/1.73 sqM); Potassium 4.3 mmol/L (3.5-5.1); Sodium 138 mmol/L (137-145)
[2024-12-29 05:32] VITALS: RESP 16
[2024-12-29 07:34] LABS: Glucose,Whole Blood 83 mg/dL (70-110)
[2024-12-29 08:08] VITALS: PULSE 83; TEMP 97.6
[2024-12-29 12:08] LABS: Glucose,Whole Blood 205 mg/dL (70-110)
[2024-12-29 12:23] VITALS: BP 146/77
--- NOTE | 2024-12-29 12:50 | P.PN ---
Subjective Patient is seen for follow-up for hyperkalemia and acute kidney injury. Serum potassium has improved. Creatinine improved to 1.1 today. Status post IV fluids. Patient is being discharged today. 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 - Labs CBC & Chem 7: 12/29/24 04:19 12/29/24 04:19 Labs: Abnormal Lab Results - Last 24 Hours (Table) 12/28/24 12/28/24 12/28/24 Range/Units 14:53 17:45 19:55 RBC (3.80-5.40) m/uL Hgb (11.4-16.0) gm/dL Hct (34.0-46.0) % Sodium 136 L (137-145) mmol/L Potassium 5.7 H (3.5-5.1) mmol/L Chloride (98-107) mmol/L BUN 24 H (7-17) mg/dL Creatinine 1.26 H (0.52-1.04) mg/dL Glucose 148 H (74-99) mg/dL POC Glucose (mg/dL) 146 H 115 H (70-110) mg/dL Magnesium 3.1 H (1.6-2.3) mg/dL 12/29/24 12/29/24 12/29/24 Range/Units 04:19 04:19 12:07 RBC 3.34 L (3.80-5.40) m/uL Hgb 10.3 L (11.4-16.0) gm/dL Hct 31.1 L (34.0-46.0) % Sodium (137-145) mmol/L Potassium (3.5-5.1) mmol/L Chloride 110 H (98-107) mmol/L BUN (7-17) mg/dL Creatinine 1.16 H (0.52-1.04) mg/dL Glucose (74-99) mg/dL POC Glucose (mg/dL) 205 H (70-110) mg/dL Magnesium (1.6-2.3) mg/dL Assessment and Plan Assessment: 1. Hyperkalemia associated with use of RUAM inhibitors, NSAIDs noted on home med list with possible acute kidney injury. No previous labs available for comparison. No urine retention 2. Acute kidney injury , likely prerenal, improved with IV hydration. No previous labs available for comparison. Ultrasound shows asymmetric kidneys with left kidney 8.4 cm right kidney 10.1 cm. No obvious hydronephrosis noted. 3. History of hypertension maintained on RUMA inhibitors Plan: Continue to hold RUMA inhibitors Continue treatment of constipation Maintain low potassium diet Repeat labs as outpatient in 2 to 3 days.
--- NOTE | 2024-12-29 14:41 | P.DS ---
Providers Date of admission: 12/26/24 17:58 Expected date of discharge: 12/29/24 Attending physician: Mallory Quan MD Consults: 12/27/24 10:12 Consult Physician Routine Consulting Provider: Kat Anne Consult Reason/Comments: DIANE on CKD Do you want consulting provider notified?: Yes Primary care physician: Donald Norwood MD Hospital Course: #. Hyperkalemia #. Non-anion gap metabolic acidosis #. DIANE on CKD stage IIIa (unknown baseline) #. Insulin-dependent diabetes mellitus #. Hyperlipidemia: Continue atorvastatin #. Depression: Continue citalopram 40 mg p.o. daily #. Neuropathy: Continue gabapentin 600 mg p.o. daily, 600 mg p.o. at bedtime as needed #. GERD: Protonix 40 mg p.o. daily Hospital Course: Patient is a 74 female with insulin-dependent diabetes mellitus, hyperlipidemia presenting with abnormal lab value of potassium level of 6.2. EKG independent interpreted showing sinus rhythm, vent rate 82 bpm, QTc 396 ms T98.0 F, MI 91, RR 18 BP 107/65, O2 sat 97% on room air 12/27/2024 patient seen and examined at bedside. No acute events overnight. Labs: WBC 5.7, hemoglobin 10.8, platelet count 2 24,000, sodium 136, potassium 6, bicarb 21, BUN 33, creatinine 4.38, glucose 113, calcium 9.3, phosphorus 6.4, magnesium 1.8. Creatinine kinase 38. Liver enzymes normal. 12/28/2024 patient seen and examined at bedside. No acute events overnight. No new complaints Labs: Sodium 139, potassium 5.5, chloride 108, BUN 27, creatinine 1.29, glucose 92, calcium 9, Cepheid 4 Plex negative 12/29/3034: discharged home after improvement of DIANE and hyperkalemia; will repeat labs 2-3 days post discharge and arrange f/u with nephrology and PCP. Pt instructed to d/c motrin and lisinopril. Gen: In NAD, non-toxic HEENT: normocephalic, atraumatic, hearing acuity is intant, mucous membranes moist CVS: perfusing all extremities well, no pitting edema, Respiratory: symmetric chest expansion, no accessory muscle use, GI: soft, NTTP, ND, : no suprapubic tenderness, no CVA tenderness MSK/Derm: no rashes, cyanosis Neuro: CN II-XII intact, no motor weakness, Psych: cooperative, euthymic mood, judgment and insight is intact Patient Condition at Discharge: Good Plan - Discharge Summary Discharge Rx Participant: No New Discharge Prescriptions: New Acetaminophen Tab [Tylenol] 650 mg PO Q6HR PRN tab PRN Reason: Fever And/ Or Pain Continue Citalopram Hydrobromide [CeleXA] 40 mg PO DAILY Omeprazole [PriLOSEC] 20 mg PO DAILY Cyclobenzaprine [Flexeril] 10 mg PO HS Alendronate Sodium [Fosamax] 70 mg PO FR Gabapentin 600 mg PO HS PRN PRN Reason: nerve pain Insulin Lispro [humaLOG Kwikpen] 1 - 10 unit SQ TID-W/MEALS Pravastatin Sodium [Pravachol] 40 mg PO DAILY Insulin Glargine,Hum.rec.anlog [Lantus Solostar Pen] 20 units SQ DAILY L.acidoph,Paracasei, B.lactis [Probiotic] 1 cap PO DAILY Gabapentin 600 mg PO DAILY Discontinued lisinopriL [Zestril] 10 mg PO DAILY Ibuprofen [Motrin] 600 mg PO Q8HR PRN PRN Reason: Pain Or Fever > 100.5 Discharge Medication List Citalopram Hydrobromide [CeleXA] 40 mg PO DAILY 02/19/14 [History] Cyclobenzaprine [Flexeril] 10 mg PO HS 02/19/14 [History] Omeprazole [PriLOSEC] 20 mg PO DAILY 02/19/14 [History] Alendronate Sodium [Fosamax] 70 mg PO FR 12/26/24 [History] Gabapentin 600 mg PO DAILY 12/26/24 [History] Gabapentin 600 mg PO HS PRN 12/26/24 [History] Insulin Glargine,Hum.rec.anlog [Lantus Solostar Pen] 20 units SQ DAILY 12/26/24 [History] Insulin Lispro [humaLOG Kwikpen] 1 - 10 unit SQ TID-W/MEALS 12/26/24 [History] L.acidoph,Paracasei, B.lactis [Probiotic] 1 cap PO DAILY 12/26/24 [History] Pravastatin Sodium [Pravachol] 40 mg PO DAILY 12/26/24 [History] Acetaminophen Tab [Tylenol] 650 mg PO Q6HR PRN tab 12/29/24 [Rx] Follow up Appointment(s)/Referral(s): Donald Norwood MD [Primary Care Provider] - 1-2 days Minor Danielson DO [STAFF PHYSICIAN] - 1 Week Discharge Disposition: HOME SELF-CARE
== END 2024-12-29 12:49 | disposition home or self-care (01) | DRG 641 ==
LOC: EC 16:33 → 3SCARD 17:58 → 5NMEDONC 12-27 20:20
PROVIDERS: ADMIT Internal Medicine; ATTEND Internal Medicine
DX: E87.5 Hyperkalemia (principal); E87.20 Acidosis, unspecified; E11.22 Type 2 diabetes mellitus with diabetic chronic kidney disease; N18.31 Chronic kidney disease, stage 3a; I12.9 Hypertensive chronic kidney disease with stage 1 through stage 4 chronic kidney disease, or unspecified chronic kidney disease; F32.A Depression, unspecified; N17.9 Acute kidney failure, unspecified; E11.40 Type 2 diabetes mellitus with diabetic neuropathy, unspecified; Z79.4 Long term (current) use of insulin; E78.5 Hyperlipidemia, unspecified; K21.9 Gastro-esophageal reflux disease without esophagitis; M79.7 Fibromyalgia; T39.395A Adverse effect of other nonsteroidal anti-inflammatory drugs [NSAID], initial encounter; K59.00 Constipation, unspecified; T46.4X5A Adverse effect of angiotensin-converting-enzyme inhibitors, initial encounter; Z88.0 Allergy status to penicillin; Z79.899 Other long term (current) drug therapy; Z90.710 Acquired absence of both cervix and uterus
CPT/HCPCS: 36415; 76770; 80048; 80053; 81001; 82550; 83735; 84100; 84132; 85025; 87636; 93005; 96361; 96372; 96374; 96375; 99291